=== PATIENT | female | born 1955 | race Asian ===

== ENCOUNTER → 2025-04-14 | Outpatient (CLI) | payer MEDICARE, OTHER ==
[~2025-04-14] VITALS: Ht 149.9 cm; Wt 54.8 kg
[~2025-04-14] MED LIST: ASPI-1198 PO; GLIM2TAB35 PO; INSLAN SQ; INSU100V SQ; LOSA-420 PO
[2025-04-14 14:53] VITALS: BP 147/65; PULSE 72; RESP 16; TEMP 98.6; O2SAT 98
== END | disposition home or self-care (01) ==
LOC: SRCNTR 14:20
PROVIDERS: ATTEND Internal Medicine
DX: I49.3 Ventricular premature depolarization (principal); I49.1 Atrial premature depolarization; I10 Essential (primary) hypertension; E11.9 Type 2 diabetes mellitus without complications; E78.5 Hyperlipidemia, unspecified; K76.0 Fatty (change of) liver, not elsewhere classified; Z79.4 Long term (current) use of insulin; Z79.82 Long term (current) use of aspirin; Z88.0 Allergy status to penicillin
CPT/HCPCS: G0463

== ENCOUNTER → 2025-05-14 | Outpatient (CLI) | payer MEDICARE, OTHER | END | disposition home or self-care (01) | LOC: LABMN 10:54 | PROVIDERS: ATTEND Internal Medicine | DX: E13.9 Other specified diabetes mellitus without complications (principal); E78.5 Hyperlipidemia, unspecified; K76.0 Fatty (change of) liver, not elsewhere classified | CPT/HCPCS: 83735; 84443 ==